=== PATIENT | female | born 1940 | race Two or more races ===

== ENCOUNTER 2018-01-10 17:30 | Inpatient (IN) | payer OTHER ==
[~2018-01-10] VITALS: Ht 152.4 cm; Wt 63.5 kg
[2018-01-10] MEDS ORDERED: NO RECUERDA (17:59)
== END 2018-01-11 08:50 | disposition expired | DRG 871 ==
LOC: ER 17:30 → ICU-2 22:03
PROC: 5A1935Z Respiratory Ventilation, Less than 24 Consecutive Hours (ICD-10-PCS; principal; 2018-01-10)
PROC: 0BH17EZ Insertion of Endotracheal Airway into Trachea, Via Natural or Artificial Opening (ICD-10-PCS; 2018-01-10)
PROC: 4A033R1 Measurement of Arterial Saturation, Peripheral, Percutaneous Approach (ICD-10-PCS; 2018-01-10)
PROC: 3E0F7GC Introduction of Other Therapeutic Substance into Respiratory Tract, Via Natural or Artificial Opening (ICD-10-PCS; 2018-01-10)
PROC: 5A09357 Assistance with Respiratory Ventilation, Less than 24 Consecutive Hours, Continuous Positive Airway Pressure (ICD-10-PCS; 2018-01-10)
DX: A41.9 Sepsis, unspecified organism (principal); R65.21 Severe sepsis with septic shock; J96.01 Acute respiratory failure with hypoxia; J44.1 Chronic obstructive pulmonary disease with (acute) exacerbation; I46.8 Cardiac arrest due to other underlying condition; Z78.1 Physical restraint status